=== PATIENT | male | born 2000 | race Asian ===

== ENCOUNTER 2018-09-28 00:05 | Emergency (ER) | payer OTHER ==
[~2018-09-28] VITALS: Ht 177.8 cm; Wt 68.0 kg
--- NOTE | 2018-09-28 00:14 | NUR ---
ED Nurse Note: Pt was brought in ED by [facility]. c/o Possible drug abused according to the EMS report. Pt was awake, confused and drawsy. Vital signs stable at this time. Waing for orders.
--- NOTE | 2018-09-28 00:35 | NUR ---
ED Nurse Note: Blood collected and sent to Lab.
--- NOTE | 2018-09-28 00:52 | NUR ---
ED Nurse Note: Meds given as ordered.
[2018-09-28 01:14] VITALS: BP 125/72
--- NOTE | 2018-09-28 01:14 | NUR ---
Note pitaone in EDM - 09/28/18 at 0631 by JANICE ED Nurse Note: Pt was brought in ED by [facility]. c/o Possible drug abused according to the EMS report. Pt was awake, confused and drawsy. Vital signs stable at this time. Waing for orders.
[2018-09-28 01:33] LABS: BASOPHILS % (AUTO) 1.3 % (0.0-2.0); HEMATOCRIT 46.6 % (42.0-52.0); HEMOGLOBIN 15.3 G/DL (14.2-18.0); MEAN CORPUSCULAR VOLUME 88 FL (80-99); NEUTROPHILS % (AUTO) 62.7 % (45.0-75.0); PLATELET COUNT 284 K/UL (150-450); RED BLOOD COUNT 5.28 M/UL (4.70-6.10); RED CELL DISTRIBUTION WIDTH 12.7 % (11.6-14.8); WHITE BLOOD COUNT 8.8 K/UL (4.8-10.8)
[2018-09-28 01:50] LABS: ANION GAP 12 mmol/L (5-15); BLOOD UREA NITROGEN 17 mg/dL (7-18); CALCIUM 8.9 MG/DL (8.5-10.1); CARBON DIOXIDE 25 MMOL/L (21-32); CHLORIDE 104 MMOL/L (98-107); CREATININE 1.3 MG/DL (0.55-1.30); POTASSIUM 3.3 MMOL/L (3.5-5.1); SODIUM 141 MMOL/L (136-145)
[2018-09-28 01:55] LABS: ALANINE AMINOTRANSFERASE 23 U/L (12-78); ALBUMIN 4.2 G/DL (3.4-5.0); ALBUMIN/GLOBULIN RATIO 1.3 (1.0-2.7); ALKALINE PHOSPHATASE 71 U/L (46-116); ASPARTATE AMINO TRANSFERASE 25 U/L (15-37); BILIRUBIN,TOTAL 0.4 MG/DL (0.2-1.0); CREATINE KINASE 320 U/L (26-308)
--- NOTE | 2018-09-28 04:04 | Emergency Room Report ---
History of Present Illness General Chief Complaint: Substance Abuse Source: Patient, EMS Present Illness HPI Patient ingested marijuana brownies. He feels that he is dying. He has some nausea without any vomiting. He feels disoriented also. He denies chest pain, abdominal pain, dyspnea, tingling, headache. He denies suicidal or homicidal ideation. EMS transported the patient. He is ingested THC in the past and never had a response like this before. The patient denies major medical problems. Allergies: Coded Allergies: No Known Allergies (Unverified , 09/28/18) Patient History Past Medical History: see triage record Social History: Reports: drug use - THC; Denies: smoking Social History Narrative Student Reviewed Nursing Documentation: PMH: Agreed; PSxH: Agreed Nursing Documentation-PMH Past Medical History: No Stated History Review of Systems All Other Systems: negative except mentioned in HPI Physical Exam Vital Signs Date Time Temp Pulse Resp B/P (MAP) Pulse Ox O2 Delivery O2 Flow Rate FiO2 09/28/18 00:02 98.4 112 16 121/71 98 Room Air Sp02 EP Interpretation: reviewed, normal General Appearance: well appearing, no apparent distress, GCS 15 Head: normocephalic Eyes: bilateral eye PERRL, bilateral eye EOMI, bilateral eye other ENT: moist mucus membranes Neck: supple Respiratory: lungs clear, normal breath sounds Cardiovascular #1: regular rate, rhythm Cardiovascular #2: 2+ radial (R) Gastrointestinal: normal inspection, normal bowel sounds, non tender, no mass, non-distended, scaphoid Musculoskeletal: back normal, normal range of motion Neurologic: alert, oriented x3, motor strength/tone normal, DTRs symmetric, sensory intact Psychiatric: depressed affect Skin: normal inspection, warm/dry Medical Decision Making Diagnostic Impression: Primary Impression: Adverse reaction to cannabis Qualified Codes: T40.7X5A - Adverse effect of cannabis (derivatives), initial encounter ER Course Patient presents with dysphoria after eating a marijuana edibles. Differential includes adverse reaction to cannabis, electrolyte imbalance, other toxic's ingestion amongst others. Patient will be evaluated with labs. Patient be treated with IV hydration and observation. Patient is given a dose of Zofran. Labs remarkable only for THC. CPK 320. After observation the patient is feeling better and feels stable to go home with friends. He denies suicidal or homicidal ideation. Patient stable for outpatient observation and treatment. Laboratory Tests Test 2/9/19 00:45 09/28/18 02:13 White Blood Count 8.8 K/UL (4.8-10.8) Red Blood Count 5.28 M/UL (4.70-6.10) Hemoglobin 15.3 G/DL (14.2-18.0) Hematocrit 46.6 % (42.0-52.0) Mean Corpuscular Volume 88 FL (80-99) Mean Corpuscular Hemoglobin 28.9 PG (27.0-31.0) Mean Corpuscular Hemoglobin Concent 32.7 G/DL (32.0-36.0) Red Cell Distribution Width 12.7 % (11.6-14.8) Platelet Count 284 K/UL (150-450) Mean Platelet Volume 7.2 FL (6.5-10.1) Neutrophils (%) (Auto) 62.7 % (45.0-75.0) Lymphocytes (%) (Auto) 30.0 % (20.0-45.0) Monocytes (%) (Auto) 5.0 % (1.0-10.0) Eosinophils (%) (Auto) 1.0 % (0.0-3.0) Basophils (%) (Auto) 1.3 % (0.0-2.0) Sodium Level 141 MMOL/L (136-145) Potassium Level 3.3 MMOL/L (3.5-5.1) L Chloride Level 104 MMOL/L (98-107) Carbon Dioxide Level 25 MMOL/L (21-32) Anion Gap 12 mmol/L (5-15) Blood Urea Nitrogen 17 mg/dL (7-18) Creatinine 1.3 MG/DL (0.55-1.30) Estimate Glomerular Filtration Rate > 60 mL/min (>60) Glucose Level 106 MG/DL (74-106) Calcium Level 8.9 MG/DL (8.5-10.1) Total Bilirubin 0.4 MG/DL (0.2-1.0) Aspartate Amino Transferase (AST) 25 U/L (15-37) Alanine Aminotransferase (ALT) 23 U/L (12-78) Alkaline Phosphatase 71 U/L (46-116) Total Creatine Kinase 320 U/L (26-308) H Total Protein 7.5 G/DL (6.4-8.2) Albumin 4.2 G/DL (3.4-5.0) Globulin 3.3 g/dL Albumin/Globulin Ratio 1.3 (1.0-2.7) Salicylates Level 0.6 ug/mL (2.8-20) L Acetaminophen Level < 2 MCG/ML (10-30) L Serum Alcohol < 3 mg/dL Urine Opiates Screen Negative (NEGATIVE) Urine Barbiturates Screen Negative (NEGATIVE) Phencyclidine (PCP) Screen Negative (NEGATIVE) Urine Amphetamines Screen Negative (NEGATIVE) Urine Benzodiazepines Screen Negative (NEGATIVE) Urine Cocaine Screen Negative (NEGATIVE) Urine Marijuana (THC) Screen Positive (NEGATIVE) H Last Vital Signs Date Time Temp Pulse Resp B/P (MAP) Pulse Ox O2 Delivery O2 Flow Rate FiO2 09/28/18 05:40 98.2 82 16 121/70 98 Room Air Status: improved Disposition: HOME, SELF-CARE Condition: Improved Scripts No Active Prescriptions or Reported Meds Referrals: NOT CHOSEN IPA/,REFERRING (PCP) Thony Jorge MD Sep 28, 2018 04:04
[2018-09-28 05:40] VITALS: BP 121/70
--- NOTE | 2018-09-28 05:42 | NUR ---
ED Nurse Note: Pt has seen by Dr. Jorge. all orders carried out, Pt is ready for discharge, D/c instruction and prescription given to Pt and verbalized understanding. Iv/ID band removed. Pt is d/c from ED with steady gait and all his belongings.
== END 2018-09-28 05:42 | disposition home or self-care (01) ==
LOC: EDBD 00:05 → EMR 00:39
DX: R11.2 Nausea with vomiting, unspecified (principal); T40.7X5A Adverse effect of cannabis (derivatives), initial encounter; Y92.9 Unspecified place or not applicable
CPT/HCPCS: 36415; 80053; 80307; 82550; 85025; 96361; 96374; 99284; G0480; J2405; 80329